=== PATIENT | male | born 1995 | race Caucasian/White ===

== ENCOUNTER 2023-05-09 20:30 | Emergency (ER) | payer SELFPAY ==
--- NOTE | 2023-05-09 20:43 | PC.NURSE ---
pt decided to go home and not be seen in ER per registration
--- NOTE | 2023-05-09 20:43 | ED.ABDPAIN1 ---
HPI - Abdominal Pain General Chief Complaint: Abdominal Pain Stated Complaint: Abdominal Pain Time Seen by Provider: 05/09/23 20:33 History of Present Illness HPI narrative: I did not see this patient. He left while being triaged. Discharge Plan Discharge Chief Complaint: Abdominal Pain Disposition: Left Without Being Seen Print Language: Trinid[place] Discharge Date/Time: 05/09/23 20:43
== END 2023-05-09 20:43 | disposition left against medical advice (07) ==
LOC: ER 20:42
PROVIDERS: Emergency Provider Emergency Medicine
DX: Z53.21 Procedure and treatment not carried out due to patient leaving prior to being seen by health care provider (principal)